=== PATIENT | male | born 1965 | race African-American/Black ===

== ENCOUNTER 2022-06-29 12:09 | Emergency (ER) | payer MEDICARE, OTHER ==
[~2022-06-29] VITALS: Ht 170.2 cm; Wt 58.1 kg
[2022-06-29 13:05] VITALS: BP 132/90
[2022-06-29] MEDS ORDERED: IPRATROPIUM BROM 0.5 MG/2.5ML INH SOL NEB ONE (13:15)
[2022-06-29] MEDS ORDERED: ALBUTEROL SULF 2.5 MG/0.5ML(0.5%) NEB SOLN NEB ONE (13:15)
[2022-06-29] MEDS ORDERED: AZIT250T8 PO (14:49)
[2022-06-29] MEDS ORDERED: METH4PAK PO (14:49)
[2022-06-29] MEDS ORDERED: ALBU108A5 IN (14:49)
== END 2022-06-29 14:56 | disposition home or self-care (01) ==
LOC: ER 12:09
DX: J20.9 Acute bronchitis, unspecified (principal); F12.10 Cannabis abuse, uncomplicated
CPT/HCPCS: 71046; 94640; 99283; J7644

== ENCOUNTER 2022-10-20 21:21 | Emergency (ER) | payer OTHER ==
[~2022-10-20] VITALS: Ht 172.7 cm; Wt 61.0 kg
[~2022-10-20 21:21] MED LIST: ALBU108A5 IN; AZIT250T8 PO; METH4PAK PO
[2022-10-20 21:37] VITALS: BP 127/77
== END 2022-10-20 22:42 | disposition left against medical advice (07) ==
LOC: ER 21:21
DX: R51.9 Headache, unspecified (principal); Z53.21 Procedure and treatment not carried out due to patient leaving prior to being seen by health care provider

== ENCOUNTER 2022-10-22 01:07 | Emergency (ER) | payer OTHER ==
[~2022-10-22] VITALS: Ht 167.6 cm; Wt 65.9 kg
[2022-10-22] MEDS ORDERED: CLIN300C8 PO (07:26)
[2022-10-22 07:34] VITALS: BP 108/58
== END 2022-10-22 07:36 | disposition home or self-care (01) ==
LOC: ER 01:07
DX: K04.7 Periapical abscess without sinus (principal); F12.10 Cannabis abuse, uncomplicated; Z88.1 Allergy status to other antibiotic agents

== ENCOUNTER 2024-04-05 20:17 | Inpatient (IN) | payer MEDICARE, MEDICAID ==
[~2024-04-05] VITALS: Ht 167.6 cm; Wt 70.0 kg
[~2024-04-05 20:17] MED LIST changes: +AZIT-185 PO; -AZIT250T8 PO; +CLIN1CAP70 PO
[2024-04-05 21:40] LABS: Basophils # (auto) 0 10 ^3/uL (0-0.2); Basophils % (auto) 0.2 % (0.0-2.0); Eosinophils # (auto) 0.1 10 ^3/uL (0-0.8); Eosinophils % (auto) 0.4 % (0.0-7.0); Lymphocytes # (auto) 0.7 10 ^3/uL (0.4-5.4); Lymphocytes % (auto) 4.8 % (10.0-50.0); Mean Corpuscular Hemoglobin 30.8 pg (28.0-32.0); Mean Corpuscular Hgb Conc. 34.1 g/dL (32.0-36.0); Mean Corpuscular Volume 90.2 fL (80.0-100.0); Monocytes # (auto) 0.9 10 ^3/uL (0-1.3); Monocytes % (auto) 6.2 % (0.0-12.0); Neutrophils # (auto) 12.9 10 ^3/uL (1.6-8.6); Neutrophils % (auto) 88.4 % (37.0-80.0); Nucleated Red Blood Cells % 0.1 %; Platelet Count (auto) 220 10^3/uL (140-450); Red Blood Cells 5.54 10^6/uL (4.5-5.90); Red Cell Distribution Width 14.5 % (11.8-14.3); White Blood Cell 14.6 10^3/uL (4.4-10.8)
[2024-04-05 21:46] LABS: Acetaminophen < 2.0 UG/ML (10.0-20.0)
[2024-04-05 21:47] LABS: Alanine Aminotransferase 56 U/L (7-40); Albumin 4.2 g/dL (3.2-4.8); Alkaline Phosphatase 82 U/L (46-116); Anion Gap 13 (5-15); Aspartate Aminotransferase 198 U/L (13-40); BUN/Creatinine Ratio 9.4 (10.0-20.0); Blood Alcohol < 3.0 mg/dL (<10); Blood Urea Nitrogen 16 mg/dL (9-23); Carbon Dioxide 20 mmol/L (20-30); Chloride 107 mmol/L (98-107); Glucose 126 mg/dL (74-106); Potassium 3.4 mmol/L (3.5-5.1); Sodium 140 mmol/L (136-145)
[2024-04-05 21:48] LABS: Bilirubin, Total 1.3 mg/dL (0.2-1.0); Total Protein 7.4 g/dL (5.7-8.2)
[2024-04-05 21:59] LABS: Salicylate < 3.0 mg/dL (2.8-20.0)
[2024-04-06] MEDS ORDERED: ONDANSETRON HCL 4 MG/2 ML VIAL IV PRN (02:45)
[2024-04-06] MEDS ORDERED: IBUPROFEN 600 MG TAB PO PRN (02:45)
[2024-04-06] MEDS ORDERED: DOCUSATE SOD 100 MG CAP PO PRN (02:45)
[2024-04-06] MEDS: SODIUM CHLORIDE 0.9% 1,000 ML IV ONE (03:25)
[2024-04-06] MEDS: levETIRAcetam 1000 mg/100ml 100 ML IV ONE (03:27)
[2024-04-06] MEDS: ASPirin 325 MG TAB PO ONE (03:29)
[2024-04-06] MEDS ORDERED: NITROGLYCERIN 0.4 MG SL TAB SL PRN (03:45)
[2024-04-06] MEDS ORDERED: MORPHINE SULFATE INJ 2 MG/ml SYRG IV PRN (03:45)
[2024-04-06 04:00] VITALS: PULSE 62; RESP 16; O2SAT 96
[2024-04-06] MEDS: SODIUM CHLORIDE 0.9% 1,000 ML IV SCH (04:25)
[2024-04-06 05:50] LABS: Urine Bacteria None Seen /hpf (None Seen)
[2024-04-06 06:08] LABS: Cellular Cast FEW /hpf (0); Urine Blood 1+ /uL (Negative); Urine Clarity Clear (Clear); Urine Color Light-Yellow (Yellow); Urine Hyaline Cast FEW /lpf (0 - 2); Urine Mucus FEW (None Seen); Urine Protein, UAD TRACE (Negative); Urine Specific Gravity 1.014 (1.001-1.035); Urine Urobilinogen Normal (Negative); Urine WBC 13 /hpf (0 - 3); Urine pH 5.5 (5.0-9.0)
[2024-04-06 06:11] LABS: Amphetamine Screen, Urine Neg (NEGATIVE)
[2024-04-06 06:13] LABS: Barbiturate Scree,Urine Neg (NEGATIVE); Benzodiazephine Screen, Urine Neg (NEGATIVE); Cocaine Screen, Urine Neg (NEGATIVE)
[2024-04-06 06:14] LABS: Cannabinoid Screen, Urine Neg (NEGATIVE); Opiate Scree,Urine Neg (NEGATIVE); Phencyclidine Screen, Urine Neg (NEGATIVE)
[2024-04-06 06:31] LABS: Basophils # (auto) 0 10 ^3/uL (0-0.2); Basophils % (auto) 0.3 % (0.0-2.0); Eosinophils # (auto) 0 10 ^3/uL (0-0.8); Eosinophils % (auto) 0.2 % (0.0-7.0); Hematocrit 48.1 % (41.0-53.0); Hemoglobin 16.4 g/dL (13.5-17.5); Lymphocytes # (auto) 1.1 10 ^3/uL (0.4-5.4); Lymphocytes % (auto) 8.5 % (10.0-50.0); Mean Corpuscular Hemoglobin 31.2 pg (28.0-32.0); Mean Corpuscular Hgb Conc. 34.1 g/dL (32.0-36.0); Mean Corpuscular Volume 91.6 fL (80.0-100.0); Monocytes # (auto) 1.1 10 ^3/uL (0-1.3); Monocytes % (auto) 8.5 % (0.0-12.0); Neutrophils # (auto) 10.5 10 ^3/uL (1.6-8.6); Neutrophils % (auto) 82.5 % (37.0-80.0); Nucleated Red Blood Cells % 0.1 %; Platelet Count (auto) 196 10^3/uL (140-450); Red Blood Cells 5.25 10^6/uL (4.5-5.90); Red Cell Distribution Width 14.6 % (11.8-14.3); White Blood Cell 12.7 10^3/uL (4.4-10.8)
[2024-04-06 07:08] LABS: Alanine Aminotransferase 48 U/L (7-40); Albumin 3.8 g/dL (3.2-4.8); Alkaline Phosphatase 71 U/L (46-116); Anion Gap 13 (5-15); Aspartate Aminotransferase 154 U/L (13-40); BUN/Creatinine Ratio 9.9 (10.0-20.0); Bilirubin, Total 1.1 mg/dL (0.2-1.0); Blood Urea Nitrogen 14 mg/dL (9-23); Calcium 8.8 mg/dL (8.7-10.4); Carbon Dioxide 19 mmol/L (20-30); Chloride 110 mmol/L (98-107); Glucose 91 mg/dL (74-106); Potassium 4.6 mmol/L (3.5-5.1); Sodium 142 mmol/L (136-145); Total Protein 6.6 g/dL (5.7-8.2)
[2024-04-06 07:20] VITALS: PULSE 53; RESP 12; O2SAT 98
[2024-04-06] MEDS: ASPirin 81 mg TAB PO SCH (10:45)
[2024-04-06] MEDS: levETIRAcetam 500 mg/100ml 100 ML IV SCH (10:45)
[2024-04-06] MEDS: cefTRIAXone 1GM/50ML D5W 50 ML IV ONE (14:30)
[2024-04-06 20:03] VITALS: PULSE 53; RESP 19; O2SAT 97
[2024-04-07 06:35] LABS: Alanine Aminotransferase 35 U/L (7-40); Albumin 3.3 g/dL (3.2-4.8); Alkaline Phosphatase 62 U/L (46-116); Anion Gap 6 (5-15); Aspartate Aminotransferase 98 U/L (13-40); BUN/Creatinine Ratio 13.2 (10.0-20.0); Blood Urea Nitrogen 14 mg/dL (9-23); Carbon Dioxide 25 mmol/L (20-30); Chloride 114 mmol/L (98-107); Glucose 92 mg/dL (74-106); Potassium 3.9 mmol/L (3.5-5.1); Sodium 145 mmol/L (136-145)
[2024-04-07 06:36] LABS: Bilirubin, Total 0.6 mg/dL (0.2-1.0); Total Protein 5.7 g/dL (5.7-8.2)
[2024-04-07 06:45] LABS: Basophils # (auto) 0 10 ^3/uL (0-0.2); Basophils % (auto) 0.2 % (0.0-2.0); Eosinophils # (auto) 0.3 10 ^3/uL (0-0.8); Eosinophils % (auto) 3.4 % (0.0-7.0); Hematocrit 44.9 % (41.0-53.0); Hemoglobin 15.3 g/dL (13.5-17.5); Lymphocytes # (auto) 1.3 10 ^3/uL (0.4-5.4); Lymphocytes % (auto) 14.9 % (10.0-50.0); Mean Corpuscular Hemoglobin 31.2 pg (28.0-32.0); Mean Corpuscular Hgb Conc. 34.2 g/dL (32.0-36.0); Mean Corpuscular Volume 91.3 fL (80.0-100.0); Monocytes # (auto) 0.6 10 ^3/uL (0-1.3); Monocytes % (auto) 6.8 % (0.0-12.0); Neutrophils # (auto) 6.7 10 ^3/uL (1.6-8.6); Neutrophils % (auto) 74.7 % (37.0-80.0); Nucleated Red Blood Cells % 0.2 %; Platelet Count (auto) 178 10^3/uL (140-450); Red Blood Cells 4.91 10^6/uL (4.5-5.90); Red Cell Distribution Width 14.6 % (11.8-14.3)
[2024-04-07 06:53] LABS: Calcium 8.5 mg/dL (8.7-10.4)
[2024-04-07 07:40] VITALS: PULSE 66; RESP 17; O2SAT 94
[2024-04-07 08:00] VITALS: TEMP 97.9
[2024-04-07] MEDS: cefTRIAXone 1GM/50ML D5W 50 ML IV SCH (09:46)
[2024-04-07] MEDS ORDERED: ESCI5TAB PO (09:59)
[2024-04-07] MEDS ORDERED: AZIT500T66 PO (09:59)
[2024-04-07] MEDS ORDERED: CIPR-173 PO (10:04)
[2024-04-07 13:20] VITALS: BP 140/68; PULSE 57; RESP 16; O2SAT 97
== END 2024-04-07 13:28 | disposition home or self-care (01) | DRG 917 ==
LOC: EDBD 20:17 → ER 20:17 → TELE 04-06 03:42
PROVIDERS: ADMIT Nurse Practitioner Family; ATTEND Family Medicine
DX: T40.2X1A Poisoning by other opioids, accidental (unintentional), initial encounter (principal); G92.8 Other toxic encephalopathy; N17.0 Acute kidney failure with tubular necrosis; I21.A1 Myocardial infarction type 2; N39.0 Urinary tract infection, site not specified; T40.411A Poisoning by fentanyl or fentanyl analogs, accidental (unintentional), initial encounter; E87.6 Hypokalemia; G40.909 Epilepsy, unspecified, not intractable, without status epilepticus; R74.01 Elevation of levels of liver transaminase levels; F41.9 Anxiety disorder, unspecified; Z56.0 Unemployment, unspecified; Z86.73 Personal history of transient ischemic attack (TIA), and cerebral infarction without residual deficits; Z79.899 Other long term (current) drug therapy; Z79.01 Long term (current) use of anticoagulants; Y92.89 Other specified places as the place of occurrence of the external cause
CPT/HCPCS: 36415; 70450; 80053; 80307; 80320; 80329; 81001; 84484; 85025; 87086; 93005; G0378